=== PATIENT | female | born 2000 ===

== ENCOUNTER 2018-11-03 17:06 | Outpatient (CLI) | payer OTHER ==
[~2018-11-03] VITALS: Ht 167.6 cm; Wt 123.2 kg
[2018-11-03 17:31] VITALS: BP 103/59
== END 2018-11-03 19:20 | disposition home or self-care (01) ==
LOC: LDOP 17:06
PROVIDERS: ATTEND Student in an Organized Health Care Education/Training Program
DX: O26.893 Other specified pregnancy related conditions, third trimester (principal); R53.1 Weakness; Z3A.33 33 weeks gestation of pregnancy
CPT/HCPCS: 59025; 81001; 87086; 99201; G0463